=== PATIENT | female | born 1970 | race Caucasian/White ===

== ENCOUNTER 2022-11-15 10:02 | Emergency (ER) | payer OTHER, SELFPAY ==
[2022-11-15] VITALS (7 sets, daily range): BP systolic 102–133; BP diastolic 54–90; PULSE 72–85; RESP 14–20; TEMP 36.7–36.9; O2SAT 97–99; BMI 26.2
--- NOTE | ~2022-11-15 | MR_ITS ---
EXAMINATION: MR BRAIN WITHOUT CONTRAST CLINICAL INFORMATION: Speech slurring. Questionable hypodensity. COMPARISON: Head CTA November 15, 2022. TECHNIQUE: Multiplanar, multisequence imaging of the brain was performed without intravenous contrast. FINDINGS: There is a small acute infarct within the right middle cerebral artery vascular territory involving the centrum semiovale ovale and tracey radiata. There is no hemorrhage, mass effect, or extra-axial fluid collection. The ventricles are normal in size without hydrocephalus. Mild nonspecific T2/FLAIR hyperintensity is seen within the periventricular and deep cerebral white matter. The major arterial flow voids are preserved at the skull base. There is mild paranasal sinus mucosal thickening without fluid levels. 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 No hemorrhage or mass effect. Nonspecific T2/FLAIR hyperintense signal changes within the periventricular and deep cerebral white matter.
--- NOTE | ~2022-11-15 | CT_ITS ---
EXAMINATION: CT HEAD WITHOUT CONTRAST (STROKE PROTOCOL) CLINICAL INFORMATION: Stroke protocol. Weakness difficulty walking left-sided weakness. COMPARISON: None TECHNIQUE: Contiguous axial imaging was performed from the skull base to vertex without intravenous administration of contrast. This CT examination was performed using dose optimization techniques as appropriate, variously including the following: *Automated exposure control *Adjustment of mA and/or kV according to patient size (this includes techniques or standardized protocols for targeted exams where dose is matched to indication/reason for exam; i.e. extremities or head) *Use of iterative reconstruction technique DLP: 735 mGy-cm FINDINGS: There is no acute intra-axial, extra-axial bleed, masses or midline shift. No extra-axial collection seen. There is a subtle hypodensity seen along the central sulcus in the right frontal lobe image 23/3. Also visualized is a hypodensity in the periventricular region of both cerebral hemispheres likely chronic small vessel disease.. There is no edema. The lateral ventricles are symmetrical in size and configuration with mild enlargement. Bone windows reveal no calvarial abnormality. There is no scalp soft tissue abnormality. Bilateral paranasal sinuses and mastoid air cells are well-aerated. CT/CT head for stroke IMPRESSION: No acute intracranial bleed. Subtle hypodensity surrounding the right frontal precentral sulcus. Question part of ischemia versus small vessel disease. There is periventricular small vessel disease bilaterally in both cerebral hemispheres. Mild prominent bilateral lateral ventricles. This critical result was discussed by phone with Dr. Marge Tucker in ED at 10:25 hours on 11/15/2022. It was ascertained that the content and urgency of the report was understood at the time of direct communication.
--- NOTE | ~2022-11-15 | CT_ITS ---
EXAMINATION: CT ANGIOGRAM NECK WITH CONTRAST CT ANGIOGRAM BRAIN WITH CONTRAST CLINICAL INFORMATION: Speech slurring. Questionable hypodensity. COMPARISON: Performed just earlier. TECHNIQUE: Test bolus sequences followed by intravenous administration 100 mL of Omnipaque 350. Helical imaging was performed in the axial plane from the thoracic inlet to the skull vertex. Delayed postcontrast imaging of the head was also performed. The data was processed at the apparatus engineering technologist workstation for generation of MIP sequences. Angled MIPs and volume rendered reformatted images were also generated at an offline 3D workstation. Stenoses are assessed in accordance with NASCET criteria unless otherwise indicated. This CT examination was performed using dose optimization techniques as appropriate, variously including the following: *Automated exposure control *Adjustment of mA and/or kV according to patient size (this includes techniques or standardized protocols for targeted exams where dose is matched to indication/reason for exam; i.e. extremities or head) *Use of iterative reconstruction technique DLP: 1559 mGy-cm FINDINGS: Head CT: There is no intracranial hemorrhage, mass effect, or extra-axial fluid collection. No large territorial infarction is seen. A small focus of hypoattenuation is noted within the right frontal lobe centrum semiovale. Additional patchy hypoattenuation is seen within the cerebral white matter, likely representing chronic microangiopathy. There is no abnormal enhancement. The dural venous sinuses are normally opacified. The extracranial structures are within normal limits. Neck CTA: The aortic arch and great vessel origins are patent. The bilateral common carotid arteries are patent. Mild atheromatous changes are seen at the carotid bifurcations without significant stenosis. Both cervical ICA segments are patent. Both vertebral arteries are patent. Head CTA: Atheromatous changes are seen at the bilateral carotid siphons resulting in severe stenosis of the supraclinoid segment of the right internal carotid artery seen on series 6 image 264. The ACAs are patent. The MCAs are patent with symmetric collaterals. The intradural vertebral arteries and basilar artery are patent. drawer upfitter are patent. No aneurysm is seen. Non-vascular findings: There is emphysema within the upper lungs. No consolidation is seen. There is a 10 mm nodule in the right lobe of the thyroid gland. This nodule is below size threshold for dedicated thyroid ultrasound recommendation. Mild degenerative changes are seen within the spine CT/CT angio head neck stroke IMPRESSION: CT HEAD: No intracranial hemorrhage or large acute infarction. Small focus of hypoattenuation in the right frontal lobe centrum semiovale likely represents an age-indeterminate infarct. Background changes of chronic microangiopathy. CTA NECK: No hemodynamically significant stenosis in the major arteries of the neck. CTA HEAD: Severe stenosis of the supraclinoid segment of the right internal carotid artery. No proximal vessel occlusion. This critical result was discussed with Dr. Green on 11/15/2022 10:59 AM, and it was ascertained that the content and urgency of the report was understood at the time of direct communication.
--- NOTE | 2022-11-15 10:07 | ECG_ITS ---
Test Reason : STROKE Blood Pressure : / mmHG Vent. Rate : 072 BPM Atrial Rate : 072 BPM P-R Int : 184 ms QRS Dur : 112 ms QT Int : 424 ms P-R-T Axes : 031 -48 027 degrees QTc Int : 464 ms Normal sinus rhythm Left axis deviation Inferior infarct , age undetermined Cannot rule out Anterior infarct , age undetermined Abnormal ECG No previous ECGs available Referred By: Marge Green Electronically Signed By:Shan Romero
--- NOTE | 2022-11-15 10:08 | ED_ITS ---
HPI - Neuro Symptoms/Deficit General Chief Complaint: Neuro Symptoms/Deficit Stated Complaint: STROKE ALERT Time Seen by Provider: 11/15/22 10:08 Source: patient, family () and EMS Mode of arrival: EMS History of Present Illness HPI Narrative: History is obtained from patient, , EMS 51-year-old female with history of CAD, diabetes, smoking, prior CVA in 01/2021 presents via EMS with having sustained a fall yesterday and has had increasing difficulty ambulating with worsening movement on her left side which is the location of her residual weakness from her prior CVA. Last known well last night, however called EMS this morning because he had concerns that the patient was unable to bear weight on the left which was new. And then on further questioning both and state that she has progressively be come more weak since her right EBONY stroke in 2020. On arrival patient noted to have no slurred speech and appears to have baseline neurologic deficits when I reviewed [facility] documentation. Patient states that she is not smoked since the stroke and that her last A1c-6 Related Data Home Medications Medication Instructions Recorded Confirmed acetaminophen 325 mg tablet 650 mg PO Q6H PRN Fever Or Pain 11/15/22 11/15/22 (Tylenol) ascorbic acid (vitamin C) 500 mg 500 mg PO DAILY 11/15/22 11/15/22 tablet (Vitamin C) aspirin 81 mg chewable tablet 1 tab PO DAILY 11/15/22 11/15/22 bupropion HCl 300 mg 24 hr tablet, 1 tab PO DAILY 11/15/22 11/15/22 extended release cetirizine 10 mg tablet 1 tab PO DAILY 11/15/22 11/15/22 clopidogrel 75 mg tablet 1 tab PO DAILY 11/15/22 11/15/22 dulaglutide 1.5 mg/0.5 mL 1.5 mg subcut TH@0900 11/15/22 11/15/22 subcutaneous pen injector (Trulicity) ferrous sulfate 325 mg (65 mg 1 tab PO BID 11/15/22 11/15/22 iron) tablet gabapentin 300 mg capsule 1 cap PO DAILY 11/15/22 11/15/22 glipizide 5 mg tablet 1 tab PO DAILY 11/15/22 11/15/22 isosorbide mononitrate 30 mg 1 tab PO DAILY 11/15/22 11/15/22 tablet,extended release 24 hr lidocaine 5 % topical patch 1 patch topical DAILY 11/15/22 11/15/22 lisinopril 5 mg tablet 1 tab PO DAILY 11/15/22 11/15/22 metformin 1,000 mg tablet 1 tab PO BID 11/15/22 11/15/22 metoprolol succinate 50 mg 1 tab PO DAILY 11/15/22 11/15/22 tablet,extended release 24 hr rosuvastatin 40 mg tablet 1 tab PO DAILY 11/15/22 11/15/22 Allergies Allergy/AdvReac Type Severity Reaction Status Date / Time Unable to Assess Allergy Verified 11/15/22 10:06 Review of Systems Review of Systems: Pertinent positives and negatives as stated in [facility] Past Medical History Source: nursing notes reviewed Social History Social History Advance Directives: Yes Advance Directives on File: Yes Advance Directives Date on File: 11/15/22 Physical Exam Vital Signs: Vital Signs: Last Vital Signs Temp 98.5 F 11/15/22 15:13 Pulse 72 11/15/22 15:13 Resp 17 11/15/22 15:13 BP 108/60 11/15/22 15:13 Pulse Ox 99 11/15/22 15:13 O2 Del Method 11/15/22 15:13 BMI result Body Mass Index 26.2 VITAL SIGNS: Reviewed. GENERAL: Chronically ill, appears older than stated age, in no acute distress. HEAD: Normocephalic/atraumatic EYES: PERRLA, EOMI EARS: Ext canals without abnormality OROPHARYNX: no oral lesions noted, posterior pharynx clear, dry mucosa, very poor dentition NECK: Supple, no adenopathy LUNGS: Normal breath sounds. No adventitious sounds or accessory muscle use. SpO2<99> CARDIOVASCULAR: Regular rate and rhythm without noted murmurs, no JVD or lower extremity edema. ABDOMEN: Soft, non-tender, non-distended with bowel sounds. MUSCULOSKELETAL: No tenderness, deformities, or effusions noted on gross inspection. EXTREMITIES: No cyanosis, clubbing or edema. SKIN: Inspection of the skin reveals no rashes NEUROLOGIC: Alert and oriented x 4. Refer to NIH stroke scale Medications Administered Discontinued Medications Generic Name Dose Route Start Last Admin Trade Name Freq PRN Reason Stop Dose Admin Sodium Chloride 1,000 mls @ 999 mls/hr 11/15/22 12:00 11/15/22 13:10 Ns IV 11/15/22 13:00 999 mls/hr .Q1H1M ALEX Administration Iohexol 100 ml 11/15/22 10:27 11/15/22 10:27 Iohexol 350 Mg/Ml 100 Ml Infus..Btl IV 11/15/22 10:28 70 ml ONCE ONE Administration Medical Decision Making Medical Decision Making MDM Narrative: 51-year-old female with unclear onset of symptoms and will proceed with stroke protocol. 1050: Collateral information obtained by Lucila, the payroll and benefits coordinator, endorses that patient fell at noon yesterday and called her . 1058: Call from [facility] regarding the CT angio head/neck which is negative for LVO but does demonstrate a high-grade stenosis in the right ICA. 1214: Patient is getting MRI at this time and my review and interpretation of the workup thus far is that patient neurologically is at her baseline and any perceived weakness may be a combination of what appears to be a normocytic anemia in conjunction with chemistry findings suggestive of mild dehydration although patient is not tachycardic nor is she hypotensive. Will give IV fluids and continue to fall imaging studies but patient will be admitted. 1255: Review of MRI does demonstrate please acute stroke but appears to be approximately 12-24 hours old. In addition, this raises further question regarding the role of right ICA stenosis but this stenosis is located in intracranial portion of the ICA. 1340: Speaking with ED physician as Neurointerventional specialist is in a procedure and not available for consultation regarding expediency of interve ntion or if intervention is indicated at this time. [facility] will d/w neurology at [facility] and neuro interventional is still being contacted. 1425: I discussed with Dr. Bowers, neurology, at [facility] who will accept the patient and currently recommends laying the patient flat and allowing permissive hypertension as well as continuing with neuro exams and notifying them if there is progression. In the meantime, I am awaiting to speak with the hospitalist. I notified both the patient and her at bedside. 1530: I discussed the case with the inpatient hospitalist, they accept the transfer under Dr. Jimenez and will call when a room is available. 1720: I signed the patient out to Dr. Ragsdale and reached out to [facility] to get a status update on the bed assignment. Differential Diagnosis Differential Diagnoses: The differential diagnosis associated with the presentation includes Please see the discussion above Consult Healthcare Provider Management of the patient was discussed with: Hospitalist and [employer]zene Washer Operator 1038: I discussed with Conrad and given absence of speech slurring and no new identified deficits no tPA recommended at this time, but needs stat MRI. 1220: I discussed case with inpatient hospitalist who accepts admission. 1316: I discussed the case with vascular surgery, Dr. Morales, who states that intervention is dependent and is more neuro interventional approach but advises that sometimes thrombectomies can be done. 1320: Call out to [facility]. Lab Data MDM Lab Attestation statement: I reviewed the patient's lab results. Please see the discussion above 11/15/22 10:57 11/15/22 10:57 Labs: Lab Results 11/15/22 11/15/22 11/15/22 Range/Units 10:05 10:57 10:57 WBC 8.8 (4.8-10.8) X10*3/uL RBC 3.18 L (4.20-5.50) X10*6/uL Hgb 8.9 L (12.0-16.0) g/dl Hct 27.9 L (37.0-47.0) % MCV 87.7 (80.0-98.0) fL MCH 28.0 (27.0-33.0) pg MCHC 31.9 (31.0-35.0) g/dl RDW 15.4 (11.0-16.0) % Plt Count 327 (160-400) X10*3/uL MPV 9.4 (9.4-12.3) fL Immature Gran % (Auto) 0.7 H (0.0-0.4) % Neut % (Auto) 68.1 (45-73) % Lymph % (Auto) 22.9 (20-40) % Banner % (Auto) 6.8 (2-11) % Eos % (Auto) 0.9 (0-4) % Baso % (Auto) 0.6 (0-2) % Lymph # (Auto) 2.0 (1.2-4.9) X10*3/uL Banner # (Auto) 0.6 (0.1-1.2) X10*3/uL Eos # (Auto) 0.1 (0.0-0.4) X10*3/uL Baso # (Auto) 0.1 (0.0-0.2) X10*3/uL Abs Immat Gran (auto) 0.06 H (0.00-0.03) X10*3/uL Absolute Neuts (auto) 6.0 (2.0-8.3) x10*3/uL Absolute Nucleated RBC 0.000 (0.0-0.012) X10*3/uL Nucleated RBC % (auto) 0.0 (0.0-0.2) /100WBC PT 11.3 (10.0-13.1) SEC INR 1.0 (0.9-1.1) APTT 35.8 (26.0-36.4) SEC Sodium (135-145) mmol/L Potassium (3.3-5.1) mmol/L Chloride (96-108) mmol/L Carbon Dioxide (22-29) mmol/L Anion Gap (12-20) BUN (9-16) mg/dL Creatinine (0.5-1.4) mg/dL Estim Creat Clear Calc Estimated GFR POC Glucose 137 H (60-115) mg/dL Random Glucose (60-115) mg/dL Calcium (8.4-10.2) mg/dL Total Creatine Kinase (26-140) U/L Troponin I High Sens (<3.5-17.0) ng/L COVID-19 (ALFREDO) (Negative) COVID-19 Clin Com Influenza Type A (GALLO) (Negative) Influenza Type B (GALLO) (Negative) Influenza A & B Note 11/15/22 11/15/22 11/15/22 Range/Units 10:57 10:57 10:57 WBC (4.8-10.8) X10*3/uL RBC (4.20-5.50) X10*6/uL Hgb (12.0-16.0) g/dl Hct (37.0-47.0) % MCV (80.0-98.0) fL MCH (27.0-33.0) pg MCHC (31.0-35.0) g/dl RDW (11.0-16.0) % Plt Count (160-400) X10*3/uL MPV (9.4-12.3) fL Immature Gran % (Auto) (0.0-0.4) % Neut % (Auto) (45-73) % Lymph % (Auto) (20-40) % Banner % (Auto) (2-11) % Eos % (Auto) (0-4) % Baso % (Auto) (0-2) % Lymph # (Auto) (1.2-4.9) X10*3/uL Banner # (Auto) (0.1-1.2) X10*3/uL Eos # (Auto) (0.0-0.4) X10*3/uL Baso # (Auto) (0.0-0.2) X10*3/uL Abs Immat Gran (auto) (0.00-0.03) X10*3/uL Absolute Neuts (auto) (2.0-8.3) x10*3/uL Absolute Nucleated RBC (0.0-0.012) X10*3/uL Nucleated RBC % (auto) (0.0-0.2) /100WBC PT (10.0-13.1) SEC INR (0.9-1.1) APTT (26.0-36.4) SEC Sodium 132 L (135-145) mmol/L Potassium 4.0 (3.3-5.1) mmol/L Chloride 106 (96-108) mmol/L Carbon Dioxide 19 L (22-29) mmol/L Anion Gap 11 L (12-20) BUN 9 (9-16) mg/dL Creatinine 0.70 (0.5-1.4) mg/dL Estim Creat Clear Calc 91.8 Estimated GFR > 60 POC Glucose (60-115) mg/dL Random Glucose 137 H (60-115) mg/dL Calcium 8.9 (8.4-10.2) mg/dL Total Creatine Kinase 19 L (26-140) U/L Troponin I High Sens < 3.5 (<3.5-17.0) ng/L COVID-19 (ALFREDO) (Negative) COVID-19 Clin Com Influenza Type A (GALLO) Negative (Negative) Influenza Type B (GALLO) Negative (Negative) Influenza A & B Note See Note 11/15/22 Range/Units 10:57 WBC (4.8-10.8) X10*3/uL RBC (4.20-5.50) X10*6/uL Hgb (12.0-16.0) g/dl Hct (37.0-47.0) % MCV (80.0-98.0) fL MCH (27.0-33.0) pg MCHC (31.0-35.0) g/dl RDW (11.0-16.0) % Plt Count (160-400) X10*3/uL MPV (9.4-12.3) fL Immature Gran % (Auto) (0.0-0.4) % Neut % (Auto) (45-73) % Lymph % (Auto) (20-40) % Banner % (Auto) (2-11) % Eos % (Auto) (0-4) % Baso % (Auto) (0-2) % Lymph # (Auto) (1.2-4.9) X10*3/uL Banner # (Auto) (0.1-1.2) X10*3/uL Eos # (Auto) (0.0-0.4) X10*3/uL Baso # (Auto) (0.0-0.2) X10*3/uL Abs Immat Gran (auto) (0.00-0.03) X10*3/uL Absolute Neuts (auto) (2.0-8.3) x10*3/uL Absolute Nucleated RBC (0.0-0.012) X10*3/uL Nucleated RBC % (auto) (0.0-0.2) /100WBC PT (10.0-13.1) SEC INR (0.9-1.1) APTT (26.0-36.4) SEC Sodium (135-145) mmol/L Potassium (3.3-5.1) mmol/L Chloride (96-108) mmol/L Carbon Dioxide (22-29) mmol/L Anion Gap (12-20) BUN (9-16) mg/dL Creatinine (0.5-1.4) mg/dL Estim Creat Clear Calc Estimated GFR POC Glucose (60-115) mg/dL Random Glucose (60-115) mg/dL Calcium (8.4-10.2) mg/dL Total Creatine Kinase (26-140) U/L Troponin I High Sens (<3.5-17.0) ng/L COVID-19 (ALFREDO) Negative (Negative) COVID-19 Clin Com See Note Influenza Type A (GALLO) (Negative) Influenza Type B (GALLO) (Negative) Influenza A & B Note Independent Interpretation I performed an independent interpretation of an: EKG Interpretation: Normal sinus rhythm, HR-72, no STEMI, UT/QTC is within normal limits, QRS-112 Radiology Impression Radiologist Impression: My interpretation is in agreement with radiology's impression of imaging studies. Independent Historian Clinical information obtained from an independent historian. History obtained from or confirmed by: Spouse External Record Review External record reviewed: Inpatient record NIH Stroke Scale Internal: Initial- Upon Arrival Level of Consciousness: Alert Level of Consciousness Questions: Answers both questions correctly Level of Consciousness Commands: Performs both tasks correctly Best Gaze: Normal Visual: No visual loss Facial Palsy: Partial paralysis (Left-sided facial droop) Motor Arm (Right): No drift Motor Arm (Left): Some effort against gravity (Baseline) Motor Leg (Right): No drift Motor Leg (Left): Some effort against gravity Limb Ataxia: Absent Sensory: Normal Best Language: No aphasia Dysarthia: Normal Extinction and Inattention: No abnormality Score: 6 Critical Care Time Critical Care Time Critical Care Time: Yes Total Critical Care Time: 90 Attestation: I personally attest to this time spent taking care of the patient. Discharge Plan Discharge Clinical Impression: Stenosis of right internal carotid artery, Acute CVA (cerebrovascular accident) Patient Disposition: [facility] Transfer Details: Escalation of care with neuro interventional Prescriptions: No Action cetirizine 10 mg tablet 1 tab PO DAILY metoprolol succinate 50 mg tablet extended release 24 hr 1 tab PO DAILY isosorbide mononitrate 30 mg tablet extended release 24 hr 1 tab PO DAILY clopidogrel 75 mg tablet 1 tab PO DAILY ferrous sulfate 325 mg (65 mg iron) tablet 1 tab PO BID metformin 1,000 mg tablet 1 tab PO BID gabapentin 300 mg capsule 1 cap PO DAILY aspirin 81 mg tablet,chewable 1 tab PO DAILY lisinopril 5 mg tablet 1 tab PO DAILY glipizide 5 mg tablet 1 tab PO DAILY rosuvastatin 40 mg tablet 1 tab PO DAILY bupropion HCl 300 mg tablet extended release 24 hr 1 tab PO DAILY Trulicity 1.5 mg/0.5 mL pen injector 1.5 mg subcut TH@0900 acetaminophen [Tylenol] 325 mg Tablet 650 mg PO Q6H PRN (Reason: Fever Or Pain) ascorbic acid (vitamin C) [Vitamin C] 500 mg Tablet 500 mg PO DAILY lidocaine 5 % adhesive patch,medicated 1 patch topical DAILY Rx Instructions: no more than 12 hours on
[2022-11-15] MEDS: iohexoL 350 MG/ML 100 ML INFUS..BTL IV (10:27)
[2022-11-15 11:04] LABS: MANUAL DIFF FLAG NO
--- NOTE | 2022-11-15 11:08 | PC.NURSE ---
Pt coming from home via EMS as stroke alert. Provider evaluated upon arrival and went to CT scan. IV established in scan. Pt states she had right sided weakness yesterday and fell twice. Keeps stating that something feels off from her baseline. Swallow eval done by stroke RN pt passed eval.
[2022-11-15 11:10] LABS: Basophils Absolute Auto 0.1 X10*3/uL (0.0-0.2); Basophils Percent Auto 0.6 % (0-2); Eosinophils Absolute Auto 0.1 X10*3/uL (0.0-0.4); Eosinophils Percent Auto 0.9 % (0-4); Hematocrit 27.9 % (37.0-47.0); Hemoglobin 8.9 g/dl (12.0-16.0); Imm Gran Abs Auto 0.06 X10*3/uL (0.00-0.03); Imm Gran Pct Auto 0.7 % (0.0-0.4); Lymphocytes Percent Auto 22.9 % (20-40); Mean Corpuscular HGB Conc 31.9 g/dl (31.0-35.0); Mean Corpuscular Volume 87.7 fL (80.0-98.0); Mean Platelet Volume 9.4 fL (9.4-12.3); Monocytes Absolute Auto 0.6 X10*3/uL (0.1-1.2); Monocytes Percent Auto 6.8 % (2-11); Neutrophils Percent Auto 68.1 % (45-73); Platelet Count 327 X10*3/uL (160-400); Red Blood Count 3.18 X10*6/uL (4.20-5.50); Red Cell Distribution Width 15.4 % (11.0-16.0); White Blood Count 8.8 X10*3/uL (4.8-10.8)
[2022-11-15 11:12] LABS: Prothrombin Time 11.3 SEC (10.0-13.1)
[2022-11-15 11:14] LABS: Partial Thromboplastin Time 35.8 SEC (26.0-36.4)
[2022-11-15 11:19] LABS: Stroke Lab Use COMPLETE
--- NOTE | 2022-11-15 11:19 | MHC.STROKE ---
Addendum entered by Lucila Ozuna RN 11/15/22 14:49: I MET WITH THE PATIENT AND HER TO REVIEW THE MRI IMAGES AND DESCRIBE THE LOCATION OF HER STROKE, WE REVIEWED THE CTA HEAD/NECK ALSO. SHE HAS BEEN ACCEPTED IN TRANSFER TO [facility] BY NEURO-INTERVENTIONAL TEAM FOR POSSIBLE INTRACRANIAL STENTING. BRE AND DR HUNT EXPALINED THIS TO THEM. I GAVE THEM A SCREENSHOT OF THE MRI IMAGES, REVIEWED THE STROKE EDUCATION BOOKLET AND POWER POINT HANDOUTS IDENTIFYING THE LOCATION OF THE STROKE AND CORRELATING SYMPTOMS. I ANSWERED ALL OF THEIR QUESTIONS. DR CUADRA HAS BEEN UPDATED. Original Note: 1001 EMS PRE-NOTIFIED STROKE ALERT LEFT SIDED DEFICITS F/A/L SYMPTOMS DISCOVERED 729. ARRIVED AT 1002. EXAMINED BY DR HUNT NIHSS = 6. DIRECT TO CT AND CTA H/N. NO BLEED, NO LVO ALTHOUGH RIGHT ICA STENOSIS NOTED, SEE RADIOLOGY NOTE. CLARIFYING LKW WITH PATIENT AND SHE SAID SHE FELL YESTERDAY ABOUT 1200 AND DID NOT SEEK MEDICAL ATTENTION, HER LEFT SIDE GAVE OUT. [place] CONTIN[place] [facility] HER AND HE WORKS [employer]. SHE HAS A HISTORY OF STROKE AND VASCULAR DISEASE, SHE GOES TO [facility]. SHE IS ABLE TO WALK WITH A WALKER INDEPENDENTLY AND FEED HERSELF. SHE PASSED THE NURSING SWALLOW SCREEN. SHE IS OUT OF THE WINDOW FOR THROMBOLYTICS AND NOT A CANDIDATE FOR THROMBECTOMY, NO LVO. DR WELLS IS RECOMMENDING AN MRI. THIS PLAN OF CARE WAS EXPLAINED TO THE PATIENT, AND I ANSWERED HER QUESTIONS. STROKE EDUCATION HAS BEEN INITIATED. I WILL CONTINUE TO FOLLOW.
[2022-11-15 11:22] LABS: Anion Gap 11 (12-20); Blood Urea Nitrogen 9 mg/dL (9-16); Calcium 8.9 mg/dL (8.4-10.2); Carbon Dioxide 19 mmol/L (22-29); Chloride 106 mmol/L (96-108); Creatinine Clr Calc Pharmacy 91.8; Estimated Glomerular Filt Rate > 60; Glucose Random 137 mg/dL (60-115); Sodium 132 mmol/L (135-145)
[2022-11-15 11:27] LABS: COVID-19 Test Negative (Negative); IDNOW Serial# 9DB6401D; IDNOW Serial# BCCEAD1C; Influenza A Negative (Negative); Influenza B2 Negative (Negative)
[2022-11-15 11:28] LABS: Troponin-I High Sensitivity < 3.5 ng/L (<3.5-17.0)
--- OUTSIDE RECORDS SUMMARY | 2022-11-15 11:30 | XMS_ITS | Continuity of Care Document ---
:1970 Author Organization [facility] Address [address] [place] [id number]- Care Team Providers Name Role Phone Sathya Rangel Primary Care Physician [place] [facility] Date(s): 10/27/21 - 11/26/[address] [id number] Attending Physician: Camron Serra Admitting Physician: AdmtrCamron Referring Physician: Admtr, Ar8 Allergies, Adverse Reactions, Alerts Substance Reaction Severity Status codeine Active sulfa drugs Active Bactrim Active PriLOSEC Active HYDROcodone CP Active Medications Aspirin Low Dose 81 mg oral tablet, chewable 1 tablet = 81 mg, By Mouth, Daily Start Date: 01/27/21 Status: OrderedbuPROPion 300 mg/24 hours (XL) oral tablet, extended release 1 tablet = 300 mg, By Mouth, Daily, # 30 tablet, 0 Refills, Maintenance, 01/27/21 10:16:00 EDT, ER Tablet, Partial fill upon patient request if the prescription is for a schedule II opioid drug. Start Date: 01/27/21 Status: Orderedcetirizine 10 mg oral tablet 1 tablet = 10 mg, By Mouth, Daily, # 30 tablet, 0 Refills, Maintenance, 01/27/21 10:17:00 EDT, Tablet, Partial fill upon patient request if the prescription is for a schedule II opioid drug. Start Date: 01/27/21 Status: Orderedclopidogrel 75 mg oral tablet 75 mg, 1, tablet, By Mouth, Daily, # 30 tablet, Refills 0, Maintenance, 01/27/21 10:17:00 EDT, Partial fill upon patient request if the prescription is for a schedule II opioid drug. Start Date: 01/27/21 Status: Orderedferrous sulfate 325 mg oral tablet 1 tablet = 325 mg, By Mouth, 2 times a day, WITH MEALS Start Date: 01/27/21 Status: OrderedglipiZIDE 10 mg oral tablet, extended release 1 tablet = 10 mg, By Mouth, 2 times a day, (BEFORE MEALS). Start Date: 01/27/21 Status: Orderedisosorbide mononitrate 30 mg oral tablet, extended release 1 tablet = 30 mg, By Mouth, Daily in AM, # 30 tablet, 0 Refills, Maintenance, 01/27/21 10:17:00 EDT,ER Tablet, Partial fill upon patient request if the prescription is for a schedule II opioid drug. Start Date: 01/27/21 Status: Orderedlisinopril 5 mg oral tablet 2.5 mg, 0.5, tablet, By Mouth, Daily, Refills 0, Maintenance, 02/01/21 14:06:00 EDT, Partial fill upon patient request if the prescription is for a schedule II opioid drug. Start Date: 02/01/21 Status: OrderedmetFORMIN 1000 mg oral tablet 1 tablet = 1,000 mg, By Mouth, 2 times a day, # 180 tablet, 0 Refills, Maintenance, 01/27/21 10:16:00 EDT, Tablet, Partial fill upon patient request if the prescription is for a schedule II opioid drug. Start Date: 01/27/21 Status: Orderedmetoprolol 25 mg oral tablet, extended release 25 mg, 1, tablet, By Mouth, Daily, Refills 0, Maintenance, 02/01/21 14:06:00 EDT, Partial fill upon patient request if the prescription is for a schedule II opioid drug. Start Date: 02/01/21 Status: OrderedNicotine Gum 2 mg, Chew, Every hour, PRN, Nicotine Cravings, Refills 0, Maintenance, Other, 02/01/21 14:06:00 EDT, Partial fill upon patient request if the prescription is for a schedule II opioid drug. Start Date: 02/01/21 Status: Orderedrosuvastatin 40 mg oral tablet 1 tablet = 40 mg, By Mouth, Daily, # 30 tablet, 0 Refills, Maintenance, 01/27/21 10:16:00 EDT, Tablet, Partial fill upon patient request if the prescription is for a schedule II opioid drug. Start Date: 01/27/21 Status: OrderedTrulicity Pen 0.75 mg/0.5 mL subcutaneous solution 0.5 mL = 0.75 mg, Subcutaneous Injection, Every week, 0 Refills, Maintenance, 01/27/21 10:17:00 EDT,Solution, Partial fill upon patient request if the prescription is for a schedule II opioid drug. Start Date: 01/27/21 Status: Ordered Social History Social History Type Response Smoking Status 5-9 cigarettes (between 1/4 to 1/2 pack)/day in last 30 days entered on: 01/27/21 Sex
--- OUTSIDE RECORDS SUMMARY | 2022-11-15 11:30 | XMS_ITS | Continuity of Care Document ---
:[address] [facility] Address [address] [place] [id number]- Care Team Providers Name Role Phone Sathya Rangel Primary Care Physician Encounter [facility] Date(s): 12/20/21 - 02/19/[address] [id number] Discharge Disposition: A-D/C Home Attending Physician: Sathya Rnagel Admitting Physician: Sathya Rangel Referring Physician: Sathya Rangel Allergies, Adverse Reactions, Alerts Substance Reaction Severity Status codeine Codeine allergy Active penicillins Active sulfa drugs Active PriLOSEC Active HYDROcodone CP Active Bactrim Active Medications aspirin 81 mg oral delayed release tablet 81 mg, 1, tablet, By Mouth, Daily, # 30 tablet, Refills 11, Tot. Refills 11, Maintenance, 08/08/17 17:48:32, Route to Pharmacy Electronically, [id number], [facility]/pharmacy #[id number] Start Date: 08/08/17 Status: OrderedAspirin Low Dose 81 mg oral tablet, chewable 1 tablet = 81 mg, By Mouth, Daily Start Date: 01/27/21 Status: OrderedbuPROPion 24 hour extended release = 150 mg, By Mouth, Daily, 0 Refills, Maintenance, 08/08/17 9:17:57 Start Date: 08/08/17 Status: OrderedbuPROPion 300 mg/24 hours (XL) oral [...] II opioid drug. Start Date: 01/27/21 Status: Orderedfenofibrate 145 mg oral tablet 1 tablet = 145 mg, By Mouth, Daily, # 30 tablet, 0 Refills, Maintenance, 08/08/17 9:19:31, Tablet Start Date: 08/08/17 Status: Orderedferrous sulfate 325 mg oral tablet [...] II opioid drug. Start Date: 01/27/21 Status: OrderedmetFORMIN 500 mg oral tablet 1 tablet = 500 mg, By Mouth, 2 times a day, 0 Refills, Maintenance, 08/08/17 9:20:06 Start Date: 08/08/17 Status: Orderedmetoprolol 25 mg oral tablet, extended release 25 mg, 1, tablet, By Mouth, Daily, Refills 0, Maintenance, 02/01/21 14:06:00 EDT, Partial fill upon patient request if the prescription is for a schedule II opioid drug. Start Date: 02/01/21 Status: Orderedmetoprolol 50 mg oral tablet, extended release 50 mg, 1, tablet, By Mouth, Daily, # 30 tablet, Refills 0, Maintenance, 08/08/17 9:20:27 Start Date: 08/08/17 Status: OrderedNicotine Gum 2 mg, Chew, Every hour, PRN, Nicotine Cravings, Refills 0, Maintenance, Other, 02/01/21 14:06:00 EDT, Partial fill upon patient request if the prescription is for a schedule II opioid drug. Start Date: 02/01/21 Status: OrderedOne Touch Delica Lancets See Instructions, # 2 box, Refills 3, Tot. Refills 3, Maintenance, To test 4-6 times a day, :24:11 Start Date: 04/29/11 Status: OrderedOne Touch Ultra Test Strips See Instructions, # 2 bottle, Refills 4, Tot. Refills 4, Maintenance, To test 4- 6 times day, 04/29/11 9:25:43 Start Date: 04/29/11 Status: Orderedrosuvastatin 40 mg oral tablet 1 tablet = 40 mg, By Mouth, Daily, # 30 tablet, 0 Refills, Maintenance, 01/27/21 10:16:00 EDT, Tablet, Partial fill upon patient request if the prescription is for a schedule II opioid drug. Start Date: 01/27/21 Status: Orderedsimvastatin 20 mg oral tablet 20 mg, 1, tablet, By Mouth, Daily at bedtime, # 30 tablet, Refills 0, Maintenance, 08/08/17 9:20:41 Start Date: 08/08/17 Status: OrderedTrulicity Pen 0.75 mg/0.5 mL subcutaneous solution 0.5 mL = 0.75 mg, Subcutaneous Injection, Every week, 0 Refills, Maintenance, 01/27/21 10:17:00 EDT,Solution, Partial fill upon patient request if the prescription is for a schedule II opioid drug. Start Date: 01/27/21 Status: Ordered Problem List Condition Effective Dates Status Health Status Informant (Confirmed) Active Social History Social History Type Response Smoking Status 5-9 cigarettes (between 1/4 to 1/2 pack)/day in last 30 days entered on: 01/27/21 Sex
--- OUTSIDE RECORDS SUMMARY | 2022-11-15 11:30 | XMS_ITS | Continuity of Care Document ---
:1970 Author Organization [facility] Address Unavailable , Care Team Providers Name Role Phone Sathya Rangel Primary Care Physician [id number] Date(s[facility] 04/15/21 - 07/30/21 [facility] Attending Physician: Zenia Cruz MD Allergies, Adverse Reactions, Alerts Substance Reaction Severity Status codeine Active Bactrim Active HYDROcodone CP Active PriLOSEC Active Medications Aspirin Low Dose 81 mg [...]
--- OUTSIDE RECORDS SUMMARY | 2022-11-15 11:30 | XMS_ITS | Continuity of Care Document ---
:1970 Author Organization [facility] Address Unavailable , Care Team Providers Name Role Phone Sathya Rangel Primary [facility] Physician [id number] Date(s[facility] 06/23/21 - 08/25/21 [facility] Attending Physician: Zenia Cruz MD [...]
--- OUTSIDE RECORDS SUMMARY | 2022-11-15 11:30 | XMS_ITS | Continuity of Care Document ---
:1970 Author Organization [facility] Address Unavailable , Care Team Providers Name Role Phone Sathya Rangel Primary Care Physician Encounter [facility] Date(s): 08/25/21 - 09/24/21 [facility] Attending Physician: Camron Serra Admitting Physician: Camron Serra Referring Physician: Camron Serra Allergies, Adverse Reactions, Alerts Substance Reaction Severity [...]
--- OUTSIDE RECORDS SUMMARY | 2022-11-15 11:30 | XMS_ITS | Continuity of Care Document ---
:1970 Author Organization [facility] Address [address] [place] [address]- Care Team Providers Name Role Phone Sathya Rangel Primary Care Physician Encounter [facility] [place] Date(s): 06/11/21 - 07/11/[address] [address] Attending Physician: Camron Serra Admitting Physician: Admtr, Camron Referring Physician: Admtr, Ar8 Allergies, Adverse Reactions, Alerts Substance Reaction Severity Status codeine Active Bactrim Active PriLOSEC Active HYDROcodone CP [...]
--- OUTSIDE RECORDS SUMMARY | 2022-11-15 11:30 | XMS_ITS | Continuity of Care Document ---
:1970 Author Organization [facility] Address Unavailable , Care Team Providers Name Role Phone Sathya Rangel Primary Care Physician Encounter [facility] ACCT R [id number] Date(s): 07/26/21 - 08/25/21 [facility] Attending Physician: Camron Serra Admitting Physician: Camron Serra Referring Physician: Camron Serra Referring Physician: Yesenia Aguayo Allergies, Adverse Reactions, Alerts Substance Reaction Severity [...]
--- OUTSIDE RECORDS SUMMARY | 2022-11-15 11:30 | XMS_ITS | Continuity of Care Document ---
:1970 Author Organization [facility] Address [address] [place] [address]- Care Team Providers Name Role Phone Sathya Rangel Primary Care Physician En[place] [facility] [place] Date(s): 07/08/21 - 07/08/[address] [address]- Discharge Disposition: A-D/C Home Attending Physician: Zenia Cruz MD Admitting Physician: Zenia Cruz MD Referring Physician: Zenia Cruz MD Allergies, Adverse Reactions, [...] opioid drug. Start Date: 01/27/21 Status: Ordered Results Orders for Microbiology Reports Name Date CSF Culture w/ Gram Smear 07/08/21 Microbiology Reports TEST:Spinal Fluid Culture STATUS:Unauthenticated BODY SITE: SOURCE:CEREBR COLLECTED DATE/TIME:07/08/21 2:15 PMSpinal Fluid Culture SPECIMEN DESCRIPTION : CEREBROSPINAL FLUID SPECIAL REQUESTS : NONE GRAM STAIN : NO CELLS OR ORGANISMS SEEN REPORT STATUS : PRELIMINARY REPORT Radiology Reports Exam Date Time Procedure Performing Provider Status 07/08/21 2:45 PM XR Lumbar Puncture Diagnostic Kimberly Vuong [facility] (Verified) Notes:(XR Lumbar Puncture Diagnostic) Reason For Exam: ABNORMAL MRI R/O ADEM RESULT: XR Lumbar Puncture Diagnostic Procedure: Fluoroscopic guided lumbar puncture. HISTORY: Persistent signal abnormality in the right cingulate gyrus, rule out demyelinating disease. FLUOROSCOPY TIME: 0.9 min Dose Area Product (DAP): 74.9 uGy*m2 The procedure was performed by Dr. Harry, under the direct supervision of Dr. Ley. Who was present during the critical portions of the procedure. DESCRIPTION OF PROCEDURE: Informed consent was obtained from the patient. A timeout was performed prior to the procedure according to protocol. Sterile technique used used throughout the procedure. 1% lidocaine was used for skin analgesia. A 20 gauge needle was advanced towards the central spinal canal in the lower lumbar spine directed at the L3-L4 level using a posterior approach central spinalfluid returned. Approximately 13 cc's of fluid were drained. Specimens were sent for requested laboratory studies. The needle was subsequently removed. There were no immediate complications. IMPRESSION: Fluoroscopic guided lumbar puncture performed without complication. I have personally reviewed the images and I agree with this report. WSN: [id number] Ordering Physician: Zenia Cruz Dictated By: Jean Pierre Harry MD Dictated Date/Time: 07/08/21 3:21 pm Reviewed By: Tina Ley MD By: Tina Ley MD Signed Date/Time: 07/08/21 3:26 pm Transcribed By: AMISHA Transcribed Date/Time: 07/08/21 2:50 pm Vital Signs Most recent to oldest [Reference Range]: 1 Oxygen Saturation [94-100 %] 100 % (07/08/21 12:12 PM) Pulse Rate [55-90 bpm] 76 bpm (07/08/21 12:12 PM) Blood Pressure [90-138/55-84 mm Hg] 108/73 mm Hg (07/08/21 12:12 PM) Respiratory Rate [16-30 br/min] 18 br/min (07/08/21 12:12 PM) Temperature [96.8-100.4 DegF] 97.6 DegF (07/08/21 12:12 PM) Mode of Delivery (Oxygen) Room air (07/08/21 12:12 PM) Blood pressure sites Arm, right (07/08/21 12:12 PM) Temperature Route Oral (07/08/21 12:12 PM) Social History Social History Type Response Smoking Status 5-9 cigarettes (between 1/4 to 1/2 pack)/day in last 30 days entered on: 01/27/21 Sex
--- OUTSIDE RECORDS SUMMARY | 2022-11-15 11:30 | XMS_ITS | Continuity of Care Document ---
:1970 Author Organization [facility] Address [address] [place] [address]- Care Team Providers Name Role Phone Sathya Rangel Primary Care Physician Encounter [place] Date(s): 01/18/22 - 02/17/[address] [address] Attending Physician: Camron Serra Admitting Physician: AdmtrCamron Referring Physician: Admtr, Ar8 Allergies, Adverse Reactions, Alerts Substance Reaction Severity Status codeine Codeine allergy Active penicillins Active sulfa drugs Active Bactrim Active PriLOSEC Active HYDROcodone CP Active Medications aspirin 81 mg oral delayed release tablet 81 mg, 1, tablet, By Mouth, Daily, # 30 tablet, Refills 11, Tot. Refills 11, Maintenance, 08/08/17 17:48:32, Route to Pharmacy Electronically, [id number], [facility]/pharmacy #[id number] Start Date: 08/08/17 Status: OrderedAspirin Low [...]
--- OUTSIDE RECORDS SUMMARY | 2022-11-15 11:30 | XMS_ITS | Continuity of Care Document ---
:1970 Author Organization [facility] Address [address] [place] [address]- Care Team Providers Name Role Phone Sathya Rangel Primary Care Physician Encounter [facility] [place] Date(s): 02/18/21 - 08/11/[address] [address] Discharge Disposition: A-D/C Home Attending Physician: Ryan Trejo MD Admitting Physician: Ryan Trejo MD Referring Physician: Ryan Trejo MD Allergies, Adverse Reactions, Alerts Substance Reaction [...]
--- OUTSIDE RECORDS SUMMARY | 2022-11-15 11:30 | XMS_ITS | Continuity of Care Document ---
:1970 Author Organization [facility] Address Unavailable , Care Team Providers Name Role Phone Sathya Rangel Primary Care Physician Encounter [facility] [place] Date(s): 11/03/21 - 12/03/21 [facility] Allergies, Adverse Reactions, Alerts Substance Reaction Severity [...]
--- OUTSIDE RECORDS SUMMARY | 2022-11-15 11:30 | XMS_ITS | Continuity of Care Document ---
:1970 Author Organization [facility] Address [address] [facility], 3rd Floor, [address] [place] [address]- Care Team Providers Name Role Phone Sathya Rangel Primary Care Physician [place] [facility] [place] 03/17/21 - 04/16/21 [facility] [address] [facility], [address]rd Floor, [address] [place] [address] Allergies, Adverse Reactions, Alerts Substance Reaction Severity Status codeine Active Bactrim Active PriLOSEC Active Medications Aspirin Low Dose [...]
--- OUTSIDE RECORDS SUMMARY | 2022-11-15 11:30 | XMS_ITS | Continuity of Care Document ---
:1970 Author Organization [facility] Address Unavailable , Care Team Providers Name Role Phone Sathya Rangel Primary Care Physician [id number] Date(s): 08/02/21 - 09/24/21 [facility] Attending Physician: Evan Hernandez MD Admitting Physician: Evan Hernandez MD Referring Physician: Zenia Cruz MD Allergies, Adverse Reactions, Alerts Substance Reaction Severity Status codeine Active sulfa drugs Active HYDROcodone CP Active Bactrim Active PriLOSEC Active Medications Aspirin [...]
--- OUTSIDE RECORDS SUMMARY | 2022-11-15 11:30 | XMS_ITS | Continuity of Care Document ---
:1970 Author Organization [facility] Address Unavailable , Care Team Providers Name Role Phone Sathya Rangel Primary Care Physician Encounter [facility] Date(s): 05/31/22 - 06/07/22 [facility] Attending Physician: Lulu Briseno MD, Zenia Allergies, Adverse Reactions, Alerts Substance Reaction Severity Status codeine Codeine allergy Active penicillins Active sulfa drugs Active Bactrim Active PriLOSEC Active HYDROcodone CP Active Medications aspirin 81 mg oral delayed release tablet 81 mg, 1, tablet, By Mouth, Daily, # 30 tablet, Refills 11, Tot. Refills 11, Maintenance, 08/08/17 17:48:32, Route to Pharmacy Electronically, [id number], [facility]/pharmacy #[id number] Start Date: 08/08/17 Status: OrderedAspirin [...] Maintenance, To test 4-6 times a day, 119:24:11 Start Date: 04/29/11 Status: OrderedOne Touch Ultra [...]
--- OUTSIDE RECORDS SUMMARY | 2022-11-15 11:30 | XMS_ITS | Continuity of Care Document ---
:1970 Author Organization [facility] Address [address] [place] [address]- Care Team Providers Name Role Phone Sathya Rangel Primary Care Physician [place] [facility] [place](s): 11/12/21 - 06/09/[address] [address] Discharge Disposition: A-D/C Home Attending Physician: Sathya Rangel Admitting Physician: Sathya Rangel Referring Physician: Sathya Rangel Allergies, Adverse Reactions, Alerts Substance Reaction Severity Status codeine Codeine allergy Active penicillins Active sulfa drugs Active Bactrim Active PriLOSEC Active HYDROcodone CP Active Medications aspirin 81 mg oral delayed release tablet 81 mg, 1, tablet, By Mouth, Daily, # 30 tablet, Refills 11, Tot. Refills 11, Maintenance, 08/08/17 17:48:32, Route to Pharmacy Electronically, [id number], [facility]/pharmacy #[id number] Start Date: 08/08/17 Status: OrderedAspirin Low [...]
--- OUTSIDE RECORDS SUMMARY | 2022-11-15 11:30 | XMS_ITS | Continuity of Care Document ---
:1970 Author Organization [facility] Address Unavailable , Care Team Providers Name Role Phone Sathya Rangel Primary Care Physician Encounter [facility] ACCT R [id number] Date(s): 05/20/22 - 06/19/22 [facility] Allergies, Adverse Reactions, Alerts Substance Reaction Severity Status codeine Codeine allergy Active penicillins Active sulfa drugs Active Bactrim Active PriLOSEC Active HYDROcodone CP Active Medications aspirin 81 mg oral delayed release tablet 81 mg, 1, tablet, By Mouth, Daily, # 30 tablet, Refills 11, Tot. Refills 11, Maintenance, 08/08/17 17:48:32, Route to Pharmacy Electronically, [id number], [facility]/pharmacy #[id number] Start Date: 08/08/17 Status: [...]
--- OUTSIDE RECORDS SUMMARY | 2022-11-15 11:30 | XMS_ITS | Continuity of Care Document ---
:1970 Author Organization [facility] Address [address] [place] [address]- Care Team Providers Name Role Phone Sathya Rangel Primary Care Physician [place] [facility] [place] 03/02/21 - 07/19/[address] [address] Discharge Disposition: A-D/C Home Attending Physician: Leisa Meyers MD Admitting Physician: Leisa Meyers MD Referring Physician: Leisa Meyers MD Allergies, Adverse Reactions, Alerts Substance Reaction [...]
--- OUTSIDE RECORDS SUMMARY | 2022-11-15 11:30 | XMS_ITS | Continuity of Care Document ---
:1970 Author Organization [facility] Address [address] [place] [address]- Care Team Providers Name Role Phone Sathya Rangel Primary Care Physician [place] [facility] [place] [id number] Date(s): 06/15/21 - 06/15/[address] [address] Discharge Disposition: A-D/C Home Attending Physician: Zenia [...] opioid drug. Start Date: 01/27/21 Status: Ordered Vital Signs Most recent to oldest [Reference Range]: 1 2 Height 163 cm 163 cm (06/15/21 11:36 AM) (06/15/21 11:23 AM) Weight 81 kg (06/15/21 11:23 AM) Oxygen Saturation [94-100 %] 100 % (06/15/21 11:36 AM) Pulse Rate [55-90 bpm] 82 bpm (06/15/21 11:36 AM) Blood Pressure [90-138/55-84 mm Hg] 136/72 mm Hg (06/15/21 11:36 AM) Respiratory Rate [16-30 br/min] 18 br/min (06/15/21 11:36 AM) Temperature [96.8-100.4 DegF] 98.3 DegF (06/15/21 11:36 AM) Mode of Delivery (Oxygen) Room air (06/15/21 11:36 AM) Blood pressure sites Arm, left (06/15/21 11:36 AM) Temperature Route Oral (06/15/21 11:36 AM) Dry Weight 81 kg (06/15/21 11:23 AM) Social History Social History Type Response Smoking Status 5-9 cigarettes (between 1/4 to 1/2 pack)/day in last 30 days entered on: 01/27/21 Sex
--- OUTSIDE RECORDS SUMMARY | 2022-11-15 11:30 | XMS_ITS | Continuity of Care Document ---
:1970 Author Organization [facility] Address [address] [facility], 3rd Floor, [address] [place] [address]- Care Team Providers Name Role Phone Sathya Rangel Primary Care Physician [place] [facility] [place]): [place] - 04/15/21 [facility] [address] [facility], 3rd Floor, [address] [place] [address] Attending Physician: Lulu Briseno MD, Zenia Referring Physician: Leisa Meyers MD Allergies, Adverse [...]
--- OUTSIDE RECORDS SUMMARY | 2022-11-15 11:30 | XMS_ITS | Continuity of Care Document ---
:1970 Author Organization [facility] Address [address] [place] [address]- Care Team Providers Name Role Phone Sathya Rangel Primary Care Physician [place] [facility] Date(s): 11/08/21 - 02/27/[address] [address] Discharge Disposition: A-D/C Home Attending Physician: Sathya [...] Maintenance, 08/08/17 17:48:32, Route to Pharmacy Electronically, [id number], [facility]/pharmacy #[id number] Start Date: 08/08/17 Status: OrderedAspirin [...]
--- OUTSIDE RECORDS SUMMARY | 2022-11-15 11:30 | XMS_ITS | Continuity of Care Document ---
:1970 Author Organization [facility] Address [address] [place] [address]- Care Team Providers Name Role Phone Sathya Rangel Primary Care Physician [place] [facility] Date(s): 03/26/21 - 07/28/[address] [address] Discharge Disposition: A-D/C Home Attending Physician: Ryan [...]
--- OUTSIDE RECORDS SUMMARY | 2022-11-15 11:31 | XMS_ITS | Continuity of Care Document ---
:1970 Author Organization [facility] Address [address] [place] [address], [address] Floor, [address] [place] [address]- Care Team Providers Name Role Phone Sathya Rangel Primary Care Physician En[place] [facility] Date(s): 05/31/22 - 06/30/22 [facility] [address] [place] [address], [address] [place] [address], [address] [place] [address]- Attending Physician: Camron Serra Admitting Physician: Camron [...] Maintenance, 08/08/17 17:48:32, Route to Pharmacy Electronically, [id number], [facility]/pharmacy #[id number] Start Date: 08/08/17 Status: [...] last 30 days entered on: 01/27/21 Sex Care Team PersonnelName: Sathya Rangel Address: [address] [place] [address]
--- NOTE | 2022-11-15 12:03 | PC.NURSE ---
In MRI at this time
[2022-11-15] MEDS: 0.9 % Sodium Chloride 1,000 ML 999 ML IV (13:10)
--- NOTE | 2022-11-15 13:14 | PHA.MEDREC ---
Pharmacy Consult ? Medication Reconciliation Pharmacy has completed the medication reconciliation. Spoke to patient's Maurice at bedside which had med list.
--- NOTE | 2022-11-15 13:25 | PC.NURSE ---
Pt back from MRI, fluids running. at bedside. Provider reaching out to [facility] for potential transfer.
[2022-11-15 14:51] LABS: Glucose, Whole Blood 137 mg/dL (60-115)
--- NOTE | 2022-11-15 17:24 | PC.NURSE ---
Pt alert and oriented, awaiting bed from [facility]. at bedside. Offering no complaints, neuros intact at this time.
--- NOTE | 2022-11-15 20:25 | PC.NURSE ---
PT's V/S were stable, pt was connected to the cardiac rehab nurse and it shows NSR. PT was a/o x 4, and pt' spouse was at bedside. This RN gave report to nurse at [facility], and all questions were addressed accordingly.
== END 2022-11-15 20:26 | disposition short-term general hospital (02) ==
PROVIDERS: Student in an Organized Health Care Education/Training Program; Emergency Provider Internal Medicine; PCP Physician Assistant Medical
DX: I63.231 Cerebral infarction due to unspecified occlusion or stenosis of right carotid arteries (principal); R29.706 NIHSS score 6; I69.354 Hemiplegia and hemiparesis following cerebral infarction affecting left non-dominant side; Z20.822 Contact with and (suspected) exposure to COVID-19; Z87.891 Personal history of nicotine dependence; Z79.02 Long term (current) use of antithrombotics/antiplatelets; Z79.899 Other long term (current) drug therapy; Z79.84 Long term (current) use of oral hypoglycemic drugs
CPT/HCPCS: 36415; 70450; 70496; 70498; 70551; 80048; 82550; 82947; 84484; 85025; 85610; 85730; 87502; 87635; 93005; 96360; 96361; 99285; Q9967

== ENCOUNTER 2025-08-14 13:03 | Outpatient (AMB) | payer OTHER, SELFPAY ==
--- OUTSIDE RECORDS SUMMARY | 2025-08-14 13:06 | XMS_ITS | Continuity of Care Document ---
Author Organization [facility] Address [address] [place] [id number] Problems Condition ICD9 code ICD10 code SNOMED code Start Date End Date S tatus Encounter for screening for other metabolic disorders Z13.228 Results No Results Allergies, adverse reactions, alerts No known allergies and adverse reactions Medications No administered medications reported Vital Signs No vital signs reported Social History No smoking Hx information available
--- NOTE | 2025-08-14 13:11 | MHC.OFFVIS ---
Intake Visit Reasons: 6 Months Stroke Allergies omeprazole (From Prilosec) Allergy (Verified 08/13/25 14:17) Unknown Penicillins Allergy (Verified 08/13/25 14:18) Unknown sulfamethoxazole (From Bactrim) Allergy (Verified 08/13/25 14:18) Unknown sulfur dioxide Allergy (Verified 08/13/25 14:17) Unknown trimethoprim (From Bactrim) Allergy (Verified 08/13/25 14:18) Unknown HPI Comments Details: 54 yo RH woman with HTN, DM, CAD, HI, painful diabetic neuropathy, gait disorder, and a right forntal deep cerebral infarction causing left hemiparesis, associated with severe right intracranial supraclinoid ICA stenosis. She is presenting for follow-up on management of her neurologic and orthopedic concerns. She has a history of multiple strokes, resulting in vascular dementia and paraplegia of the left side. Her mobility improved over time with initial therapy, but residual difficulties remain significant, necessitating considerable personal support. Chronic right shoulder pain, initially misattributed to adhesive capsulitis, persists and is managed with gabapentin. She receives orthopedic care under Dr. Jj. Notably, gabapentin provides symptomatic relief, particularly in colder weather. Cognitive difficulties, previously severe enough to be categorized as vascular dementia, have been reclassified to mild cognitive impairment with medical intervention, though the patient continues to experience lingering memory challenges. 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 Careful management of these diverse medical challenges is complicated by insurance logistics and housing needs post-stroke. [facility] Medical History (Updated 08/14/25 @ 13:21 by Rip Lindsay MD) Myocardial infarction Stroke Vascular dementia Left hemiparesis Intracranial carotid stenosis, right Painful diabetic neuropathy Peripheral vascular disease Anxiety Multifactorial gait disorder Peripheral neuropathy HLD (hyperlipidemia) CAD (coronary artery disease) Hypertension Diabetes mellitus Cerebral infarction Social History (System 08/16/23 @ 15:23 by Amber Ozuna) Advance Directives Date on File: 11/15/22 Review of Systems Const Details: - Musculoskeletal: Reports right shoulder pain intermittently worsened with cold. - Neurological: Reports mild cognitive impairment; history of multiple strokes leading to paraplegia on the left side. - Dermatologic: Denies other concerns. - General: Denies current pain other than right shoulder discomfort. - Psychiatric: Reports memory issues improved with medication. Physical Exam Neuro Other: Mental Status: Alert and oriented to person, place, and time. Normal attention. Normal spontaneous speech, fluency, and comprehension. Cranial Nerves: CN II: Visual rodriguez full to confrontation, visual acuity intact. CN III, IV, : Pupils equal, round, reactive to light and accommodation. Extraocular movements are normal. CN V: Facial sensation is normal. CN VII: Facial movements symmetrical. CN VIII: Hearing intact to bedside conversation is normal. CN IX, X: Palate elevates symmetrically. CN XI: Shoulder shrug and head turn symmetrical. CN XII: Tongue midline without atrophy or fasciculations. She has left hemiparesis. She is in a wheel chair Extrapyramidal: Full facial expressions and blinking. No rigidity. Movements are appropriate with no tremor or abnormality. Speech: Normal; no dysarthria or tremor. Assessment & Plan Assessment & Plan (1) Cerebral infarction: Code(s): I63.9 - Cerebral infarction, unspecified Category: Medical Qualifiers: Cerebral infarction mechanism: thrombosis Precerebral and cerebral artery: middle cerebral artery Laterality of affected vessel: right Qualified Code(s): I63.311 - Cerebral infarction due to thrombosis of right middle cerebral artery (2) Painful diabetic neuropathy: Code(s): E11.40 - Type 2 diabetes mellitus with diabetic neuropathy, unspecified Category: Medical (3) MCI (mild cognitive impairment): Code(s): G31.84 - Mild cognitive impairment of uncertain or unknown etiology Category: Medical Plan Impression: a: Left hemiparesis secondary to a right probably atherothrobotic ischemic subcortical infarct b: Right intracranial stenosis c: Painful diabetic neuropathy d: Vascular based mild cognitive impairment Rec: a: Brilinta 60mg bid b: Gabapentin 300mg bid c: Memantine 5mg bid Medications: New memantine 5 mg PO BID 180 tabs 1RF Changed From gabapentin 1 cap PO DAILY To gabapentin 300 mg PO BID 180 caps 1RF Coding Level of Care Code Est Pt Level 4 (42310) Diagnoses Cerebral infarction due to thrombosis of right middle cerebral artery I63.311 Cerebral infarction mechanism: thrombosis Precerebral and cerebral artery: middle cerebral artery Laterality of affected vessel: right Painful diabetic neuropathy E11.40 MCI (mild cognitive impairment) G31.84
== END 2025-08-14 13:25 | disposition home or self-care (01) ==
LOC: HO.HSM 13:04
PROVIDERS: PCP Physician Assistant Medical; Referring Provider Physician Assistant Medical; Visit Provider Psychiatry & Neurology Neurology
DX: I63.311 Cerebral infarction due to thrombosis of right middle cerebral artery (principal); E11.40 Type 2 diabetes mellitus with diabetic neuropathy, unspecified; G31.84 Mild cognitive impairment of uncertain or unknown etiology
CPT/HCPCS: 99214